=== PATIENT | male | born 1955 ===

== ENCOUNTER 2016-09-03 18:58 | Emergency (ER) | payer OTHER ==
[2016-09-03 19:05] VITALS: TEMP 99.1; BMI 27.4
[2016-09-03] MEDS ORDERED: Sodium Chloride 0.9% 1,000 ML IV STA (19:57)
[2016-09-03] MEDS ORDERED: Multivitamin (MVI) 10 ML, Thiamine 100 MG, Folic Acid 1 MG in Sodium Chloride 0.9% 1,00... IV ONE (19:59)
[2016-09-03 20:21] LABS: BASO # 0.07 K/mm3 (0.0-2.0); BASO % 0.6 % (0.0-3.0); EOS # 0.5 (0.0-0.7); EOS % 4.6 % (1.5-5.0); GRAN # 9.01 (1.4-6.5); GRAN % 79.1 % (50.0-68.0); HEMOGLOBIN 14.2 gm/dL (14.0-18.0); LYMPH # 1.4 (1.2-3.4); MEAN CELL VOLUME 86.9 fL (80.0-105.0); MEAN CORPUSCULAR HEMOGLOBIN 31.6 pg (25.0-35.0); MEAN CORPUSCULAR HGB CONC 36.4 g/dl (31.0-37.0); MONO # 0.4 (0.1-0.6); MONO % 3.7 % (1.0-6.0); PLATELET COUNT 200 10^3/uL (120.0-450.0); RBC 4.49 10^6/uL (3.5-6.1); RED CELL DISTRIBUTION WIDTH 13.4 % (11.5-14.5); WHITE BLOOD COUNT 11.4 10^3/ul (4.5-11.0)
[2016-09-03 20:33] LABS: ALB/GLOB RATIO 1.5 (1.1-1.8); ALBUMIN 5.1 g/dL (3.0-4.8); ALT/SGPT 33 U/L (7-56); AST/SGOT 43 U/L (15-59); BLOOD UREA NITROGEN 13 mg/dL (7-21); CALCIUM 9.1 mg/dL (8.4-10.5); GFR AFRICAN-AMERICAN > 60; GFR NON-AFRICAN AMERICAN > 60; LIPASE 140 U/L (23-300)
[2016-09-03 20:42] LABS: TROPONIN I < 0.01 ng/mL
[2016-09-03 21:06] VITALS: BP 141/74
[2016-09-03 21:16] LABS: URINE BILIRUBIN NEGATIVE (NEGATIVE); URINE BLOOD TRACE-INTACT (NEGATIVE); URINE GLUCOSE (UA) NEGATIVE (NEGATIVE); URINE LEUKOCYTE ESTERASE NEGATIVE Leu/uL (NEGATIVE); URINE NITRATE NEGATIVE (NEGATIVE); URINE PROTEIN TRACE mg/dL (<30 mg/dL); URINE UROBILINOGEN 0.2 E.U./dL (<1 E.U./dL)
[2016-09-03 21:21] LABS: URINE APPEARANCE CLEAR (CLEAR); URINE COLOR YELLOW (YELLOW)
[2016-09-03 21:31] LABS: URINE BACTERIA FEW (NEG)
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
[2016-09-03 22:46] VITALS: PULSE 80; RESP 16; O2SAT 99
--- NOTE | 2016-09-04 08:15 | RAD ---
PROCEDURE: CHEST RADIOGRAPH, 1 VIEW HISTORY: weakness COMPARISON: None available. FINDINGS: LUNGS: Poor inspiration with low lung volumes, crowded bronchovascular markings and mild bibasilar atelectasis. PLEURA: No pneumothorax or pleural fluid seen. CARDIOVASCULAR: Heart size is borderline/ mildly enlarged OSSEOUS STRUCTURES: No significant abnormalities. VISUALIZED UPPER ABDOMEN: Normal. OTHER FINDINGS: None. IMPRESSION: Poor inspiration with low lung volumes, crowded bronchovascular markings and mild bibasilar atelectasis.
--- NOTE | 2016-09-04 10:02 | CARD ---
APPROVED REPORT EKG Measurement Heart [id number] [id number] <Conclusion> Normal sinus rhythm Moderate voltage criteria for LVH, may be normal variant Leftward axis NSSTW changes Prolonged QTc
== END 2016-09-03 22:46 | disposition home or self-care (01) ==
LOC: ED 18:58
DX: F10.239 Alcohol dependence with withdrawal, unspecified (principal); Y90.0 Blood alcohol level of less than 20 mg/100 ml; E86.0 Dehydration; E88.89 Other specified metabolic disorders
CPT/HCPCS: 71010; 80053; 80320; 81001; 83690; 84484; 85025; 93005; 96361; 96365; 96372; 96375; 99284; J2060; J2405; J3411; J7040

== ENCOUNTER 2017-09-19 21:31 | Inpatient (IN) | payer SELFPAY ==
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
[2017-09-19 22:10] LABS: HEMOGLOBIN 15.3 g/dL (14.0-18.0); MEAN CORPUSCULAR HGB CONC 37.2 g/dl (31.0-37.0); MEAN PLATELET VOLUME 9.5 fl (7.0-11.0); RBC 4.78 10^6/uL (3.5-6.1); RED CELL DISTRIBUTION WIDTH 13.3 % (11.5-14.5); WHITE BLOOD COUNT 9.4 10^3/ul (4.5-11.0)
[2017-09-19 22:21] LABS: INR 0.96 (0.93-1.08); PARTIAL THROMBOPLASTIN TIME 25.9 Seconds (25.1-36.5); PROTHROMBIN TIME 10.9 SECONDS (9.4-12.5)
[2017-09-19 22:25] LABS: ALB/GLOB RATIO 1.3 (1.1-1.8); ALT/SGPT 40 U/L (7-56); AST/SGOT 36 U/L (17-59); BLOOD UREA NITROGEN 13 mg/dL (7-21); CALCIUM 8.7 mg/dL (8.4-10.5); GFR AFRICAN-AMERICAN > 60; GFR NON-AFRICAN AMERICAN > 60
[2017-09-19 22:36] LABS: TROPONIN I < 0.01 ng/mL
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
[2017-09-20] MEDS ORDERED: Multivitamin (MVI) 10 ML, Thiamine 100 MG, Folic Acid 1 MG in Sodium Chloride 0.9% 1,00... IV ONE (00:13)
[2017-09-20 00:24] LABS: HDL CHOLESTEROL 65 mg/dL (29-60); LIPASE 117 U/L (23-300)
[2017-09-20 00:35] LABS: LDL CHOLESTEROL 83 mg/dL (0-129)
[2017-09-20 02:20] VITALS: BMI 27.4
[2017-09-20 02:44] LABS: ARTERIAL BLOOD GAS HCO3 15.9 mmol/L (21-28); ARTERIAL BLOOD GAS HEMOGLOBIN 14.2 g/dL (11.7-17.4); ARTERIAL BLOOD GAS O2 CAPACITY 19.5 mL/dl (16-24); ARTERIAL BLOOD GAS O2 CONTENT 18.5 ML/dl (15-23); ARTERIAL BLOOD GAS O2 SAT 94.7 % (95-98); ARTERIAL BLOOD GAS PCO2 33 mm/Hg (35-45); ARTERIAL BLOOD GAS PH 7.29 (7.35-7.45); ARTERIAL BLOOD GAS TCO2 16.9 mmol.L (22-28)
[2017-09-20 04:27] LABS: BARBITURATES, UR NEGATIVE (NEGATIVE); BENZODIAZEPINES, UR NEGATIVE (NEGATIVE); OPIATES, UR NEGATIVE (NEGATIVE); PHENCYCLIDINE, UR NEGATIVE (NEGATIVE)
[2017-09-20 06:42] LABS: BASO # 0.05 K/mm3 (0.0-2.0); BASO % 0.5 % (0.0-3.0); EOS # 0.5 (0.0-0.7); EOS % 5.4 % (1.5-5.0); GRAN # 6.95 (1.4-6.5); GRAN % 72.3 % (50.0-68.0); HEMOGLOBIN 13.5 g/dL (14.0-18.0); LYMPH # 1.9 (1.2-3.4); LYMPH % 19.4 % (22.0-35.0); MEAN CORPUSCULAR HEMOGLOBIN 30.7 pg (25.0-35.0); MEAN CORPUSCULAR HGB CONC 35.2 g/dl (31.0-37.0); MONO # 0.2 (0.1-0.6); MONO % 2.4 % (1.0-6.0); RBC 4.4 10^6/uL (3.5-6.1); RED CELL DISTRIBUTION WIDTH 13.5 % (11.5-14.5); WHITE BLOOD COUNT 9.6 10^3/ul (4.5-11.0)
[2017-09-20 06:43] LABS: ALB/GLOB RATIO 1.4 (1.1-1.8); ALBUMIN 4.4 g/dL (3.0-4.8); ALT/SGPT 26 U/L (7-56); AST/SGOT 40 U/L (17-59); BLOOD UREA NITROGEN 15 mg/dL (7-21); CALCIUM 8.4 mg/dL (8.4-10.5); GFR AFRICAN-AMERICAN > 60; GFR NON-AFRICAN AMERICAN > 60
[2017-09-20 08:02] LABS: TROPONIN I < 0.01 ng/mL
--- NOTE | 2017-09-20 08:25 | CT ---
Date of service: 09/20/2017 PROCEDURE: CT Chest without contrast HISTORY: Chest pain radiating to back COMPARISON: None. TECHNIQUE: Contiguous axial images were obtained through the chest without intravenous contrast enhancement. Sagittal and coronal reconstructions were performed. Radiation dose (DLP): 394 mGy-cm. This CT exam was performed using one or more of the following dose reduction techniques: Automated exposure control, adjustment of the mA and/or kV according to patient size, and/or use of iterative reconstruction technique. FINDINGS: LUNGS: Clear lungs. Visualized airway clear. MEDIASTINUM: Unremarkable thoracic aorta. No aneurysm. Normal sized heart. Main pulmonary artery unremarkable. No vascular congestion. No lymphadenopathy. PLEURA: No pleural fluid. No pneumothorax. BONES: No fracture. No destructive lesion. UPPER ABDOMEN: Grossly unremarkable. OTHER FINDINGS: None. IMPRESSION: No acute findings
--- NOTE | 2017-09-20 09:12 | RAD ---
Date of service: 09/19/2017 HISTORY: chest pain COMPARISON: 09/03/2016 FINDINGS: LUNGS: No active pulmonary disease. PLEURA: No significant pleural effusion identified, no pneumothorax apparent. CARDIOVASCULAR: Normal. OSSEOUS STRUCTURES: No significant abnormalities. VISUALIZED UPPER ABDOMEN: Normal. OTHER FINDINGS: None. IMPRESSION: No active disease.
[2017-09-20] MEDS ORDERED: WATER IV SCH (11:00)
[2017-09-20] MEDS ORDERED: SODIUM BICARBONATE IV SCH (11:00)
[2017-09-20] MEDS ORDERED: DEXTROSE 5% IV SCH (11:00)
[2017-09-20] MEDS ORDERED: Sodium Bicarbonate 8.4% 150 MEQ in Dextrose 5% In Water 1,000 ML IV SCH (11:15)
[2017-09-20 11:33] LABS: ARTERIAL BLOOD GAS HCO3 15.5 mmol/L (21-28); ARTERIAL BLOOD GAS HEMOGLOBIN 12.6 g/dL (11.7-17.4); ARTERIAL BLOOD GAS O2 CAPACITY 17.5 mL/dl (16-24); ARTERIAL BLOOD GAS O2 CONTENT 17.1 ML/dl (15-23); ARTERIAL BLOOD GAS O2 SAT 97.7 % (95-98); ARTERIAL BLOOD GAS PCO2 28 mm/Hg (35-45); ARTERIAL BLOOD GAS PH 7.35 (7.35-7.45); ARTERIAL BLOOD GAS TCO2 16.4 mmol.L (22-28)
[2017-09-20 11:45] LABS: ALB/GLOB RATIO 1.4 (1.1-1.8); ALT/SGPT 25 U/L (7-56); AST/SGOT 29 U/L (17-59); BLOOD UREA NITROGEN 15 mg/dL (7-21); CALCIUM 8.3 mg/dL (8.4-10.5); GFR AFRICAN-AMERICAN > 60; GFR NON-AFRICAN AMERICAN > 60
--- NOTE | 2017-09-20 13:52 | CT ---
Date of service: 09/20/2017 PROCEDURE: CT Abdomen and Pelvis without intravenous contrast HISTORY: abdominal pain with constipation COMPARISON: 06/20/2017 CT TECHNIQUE: Without contrast. Contrast dose: Radiation dose: Total exam DLP = 638 mGy-cm. This CT exam was performed using one or more of the following dose reduction techniques: Automated exposure control, adjustment of the mA and/or kV according to patient size, and/or use of iterative reconstruction technique. FINDINGS: LOWER THORAX: Unremarkable. LIVER: Unremarkable. No gross lesion or ductal dilatation. GALLBLADDER AND BILE DUCTS: Unremarkable. PANCREAS: Unremarkable. No gross lesion or ductal dilatation. SPLEEN: Unremarkable. ADRENALS: Unremarkable. No mass. KIDNEYS AND URETERS: Unremarkable. No hydronephrosis. No solid mass. VASCULATURE: Unremarkable. No aortic aneurysm. BOWEL: Unremarkable. No obstruction. No gross mural thickening. APPENDIX: Unremarkable. Normal appendix. PERITONEUM: Unremarkable. No free fluid. No free air. LYMPH NODES: Unremarkable. No enlarged lymph nodes. BLADDER: Unremarkable. REPRODUCTIVE: Unremarkable. BONES: No acute fracture. OTHER FINDINGS: None. IMPRESSION: Unremarkable non contrast enhanced CT of the abdomen and pelvis.
[2017-09-20] MEDS: Enoxaparin 40 mg Syringe SC SCH (13:53)
--- NOTE | 2017-09-20 14:10 | US ---
Date of service: 09/20/2017 HISTORY: Abdominal pain COMPARISON: None. TECHNIQUE: Sonographic evaluation of the abdomen. FINDINGS: LIVER: Measures 18.8 cm. Diffusely increased echogenicity of the liver parenchyma. Consistent with fatty infiltration. Smooth contour. No mass. No biliary dilatation. GALLBLADDER: Cholelithiasis noted. No mural thickening. No pericholecystic fluid. Negative sonographic Rodriguez sign. COMMON BILE DUCT: Measures 6 mm. No stones. No dilatation. PANCREAS: Limited visualization. No gross abnormality. RIGHT KIDNEY: Measures 10.3cm. Normal echogenicity. No calculus, mass, or hydronephrosis. LEFT KIDNEY: Measures 10.6cm. Normal echogenicity. No calculus or hydronephrosis. Upper pole simple cortical cyst, 4.0 x 3.8 x 5.1 cm. SPLEEN: Normal in size and contour. No mass. AORTA: No aneurysmal dilatation. IVC: Unremarkable. OTHER FINDINGS: None. IMPRESSION: Mildly enlarged fatty liver. Cholelithiasis without evidence of cholecystitis. 5.1 cm simple left upper pole renal cortical cyst.
[2017-09-20 15:49] LABS: BLOOD UREA NITROGEN 17 mg/dL (7-21); CALCIUM 8.2 mg/dL (8.4-10.5); GFR AFRICAN-AMERICAN > 60; GFR NON-AFRICAN AMERICAN > 60
[2017-09-20 16:13] LABS: IRON 113 ug/dL (45-180)
[2017-09-20 16:22] LABS: % IRON SATURATION 51 % (20-55); TOTAL IRON BINDING CAPACITY 222 ug/dL (261-462)
[2017-09-20] MEDS: POLYETHYLENE GLYCOL 3350 17 GM/Dose PACKET PO SCH (17:38)
--- NOTE | 2017-09-20 18:57 | CARD ---
APPROVED REPORT Date of service: 09/20/2017 EKG Measurement Heart [id number] <Conclusion> Normal sinus rhythm Minimal voltage criteria for LVH, may be normal variant Borderline ECG
--- NOTE | 2017-09-20 19:02 | CARD ---
APPROVED REPORT Date of service: 09/19/2017 EKG Measurement Heart [id number] <Conclusion> Poor data quality, interpretation may be adversely affected Normal sinus rhythm Normal ECG
[2017-09-21 06:40] LABS: BASO # 0.03 K/mm3 (0.0-2.0); BASO % 0.4 % (0.0-3.0); EOS # 0.7 (0.0-0.7); EOS % 9.5 % (1.5-5.0); GRAN # 5.09 (1.4-6.5); GRAN % 66.5 % (50.0-68.0); HEMOGLOBIN 12.8 g/dL (14.0-18.0); LYMPH # 1.3 (1.2-3.4); LYMPH % 16.7 % (22.0-35.0); MEAN CELL VOLUME 85.9 fl (80.0-105.0); MEAN CORPUSCULAR HEMOGLOBIN 31.1 pg (25.0-35.0); MEAN CORPUSCULAR HGB CONC 36.2 g/dl (31.0-37.0); MEAN PLATELET VOLUME 9.7 fl (7.0-11.0); MONO # 0.5 (0.1-0.6); MONO % 6.9 % (1.0-6.0); RBC 4.12 10^6/uL (3.5-6.1); WHITE BLOOD COUNT 7.7 10^3/ul (4.5-11.0)
[2017-09-21 06:49] LABS: ALB/GLOB RATIO 1.4 (1.1-1.8); ALBUMIN 4.1 g/dL (3.0-4.8); ALT/SGPT 29 U/L (7-56); AST/SGOT 34 U/L (17-59); BLOOD UREA NITROGEN 16 mg/dL (7-21); CALCIUM 8.5 mg/dL (8.4-10.5); GFR AFRICAN-AMERICAN > 60; GFR NON-AFRICAN AMERICAN > 60
[2017-09-21] MEDS ORDERED: Sodium Chloride 0.9% 100 ML IV SCH (09:45)
[2017-09-21] MEDS: Enoxaparin 40 mg Syringe SC SCH (09:55)
[2017-09-21] MEDS: POLYETHYLENE GLYCOL 3350 17 GM/Dose PACKET PO SCH ×2 (09:56→17:17)
[2017-09-21] MEDS: Potassium & Sodium Phosphate PO SCH ×3 (09:56→17:17)
--- NOTE | 2017-09-21 12:53 | CT ---
Date of service: 09/21/2017 PROCEDURE: CT HEAD WITHOUT CONTRAST. HISTORY: new onset nausea vomiting COMPARISON: None available. TECHNIQUE: Axial computed tomography images were obtained through the head/brain without intravenous contrast. Radiation dose: Total exam DLP = 904 mGy-cm. This CT exam was performed using one or more of the following dose reduction techniques: Automated exposure control, adjustment of the mA and/or kV according to patient size, and/or use of iterative reconstruction technique. FINDINGS: HEMORRHAGE: No intracranial hemorrhage. BRAIN: No mass effect or edema. No atrophy or chronic microvascular ischemic changes. VENTRICLES: Unremarkable. No hydrocephalus. CALVARIUM: Unremarkable. PARANASAL SINUSES: Unremarkable as visualized. No significant inflammatory changes. MASTOID AIR CELLS: Unremarkable as visualized. No inflammatory changes. OTHER FINDINGS: None. IMPRESSION: No acute findings
--- NOTE | 2017-09-21 14:17 | CP.PCM.PN ---
<Rj Atkinson - Last Filed: 09/21/17 16:03> Subjective - Date & Time of Evaluation Date of Evaluation: 09/21/17 Time of Evaluation: 09:00 - Subjective Subjective: Medicine progress note for Dr. Louise Atkinson, PGY - 2, IM Patient seen at bedside. At 0400 this morning he experienced room spinning, dizziness, nausea, and vomiting. Patient reports a 15 year history of vertigo and states current symptoms are similar to prior episodes. He tends to get vertigo-like symptoms after drinking but has also experienced symptoms without any EtOH use. Currently denies any associated chest pain, dyspnea, lightheadedness, numbness, tingling, weakness, or focal deficits and any other new symptoms. He takes Meclizine for his vertigo. No other new concerns at this time. Objective - Vital Signs/Intake and Output Vital Signs (last 24 hours): Temp Pulse Resp BP Pulse Ox 97.5 F L 74 20 155/83 H 99 09/21/17 06:00 09/21/17 10:00 09/21/17 06:00 09/21/17 06:00 09/21/17 06:00 - Medications Medications: Current Medications Aspirin (Aspirin Chewable) 81 mg PO DAILY [facility] Last Admin: 09/21/17 09:55 Dose: 81 mg Atorvastatin Calcium (Lipitor) 40 mg PO DIN [facility] Last Admin: 09/20/17 17:38 Dose: 40 mg Chlordiazepoxide (Librium) 25 mg PO Q8 PRN; Protocol PRN Reason: Anxiety Enoxaparin Sodium (Lovenox) 40 mg SC DAILY [facility] PRN Reason: Protocol Last Admin: 09/21/17 09:55 Dose: 40 mg Famotidine (Pepcid) 40 mg PO HS [facility] Last Admin: 09/20/17 21:35 Dose: 40 mg Hydrochlorothiazide (Microzide) 12.5 mg PO DAILY [facility] Last Admin: 09/21/17 09:56 Dose: 12.5 mg Sodium Chloride (Sodium Chloride 0.9%) 100 mls @ 100 mls/hr IV .Q1H [facility] Last Admin: 09/21/17 09:58 Dose: 100 mls/hr Ondansetron HCl (Zofran Inj) 4 mg IVP Q6H PRN PRN Reason: Nausea/Vomiting Last Admin: 09/21/17 08:15 Dose: 4 mg Polyethylene Glycol (Miralax) 17 gm PO BID [facility] Last Admin: 09/21/17 09:56 Dose: Not Given Potassium Phos/Sodium Phos (Neutra-Phos) 2 pkt PO TID [facility] Last Admin: 09/21/17 09:56 Dose: 2 pkt Tamsulosin HCl (Flomax) 0.4 mg PO DAILY [facility] Last Admin: 09/21/17 09:55 Dose: 0.4 mg - Labs Labs: PT 10.9 SECONDS (9.4-12.5) 09/19/17 21:35 INR 0.96 (0.93-1.08) 09/19/17 21:35 APTT 25.9 Seconds (25.1-36.5) 09/19/17 21:35 - Constitutional Appears: Well (mild distress) - Head Exam Head Exam: ATRAUMATIC, NORMAL INSPECTION, NORMOCEPHALIC - Eye Exam Eye Exam: EOMI, Normal appearance, Nystagmus (Nystagmus on Tiffani-hallpike maneuver ), PERRL Pupil Exam: NORMAL ACCOMODATION, PERRL - ENT Exam ENT Exam: Mucous Membranes Moist, Normal Exam - Neck Exam Neck Exam: Full ROM, Normal Inspection. absent: Lymphadenopathy - Respiratory Exam Respiratory Exam: Clear to Ausculation Bilateral, NORMAL BREATHING PATTERN - Cardiovascular Exam Cardiovascular Exam: REGULAR RHYTHM, +S1, +S2. absent: Murmur - GI/Abdominal Exam GI & Abdominal Exam: Soft, Tenderness (minimal epigastric tenderness with palpation. No other abdominal tenderness noted), Normal Bowel Sounds - Extremities Exam Extremities Exam: Full ROM, Normal Capillary Refill, Normal Inspection. absent : Joint Swelling, Pedal Edema - Back Exam Back Exam: NORMAL INSPECTION - Neurological Exam Neurological Exam: Alert, Awake, CN II-XII Intact, Normal Gait, Oriented x3 Additional comments: 5/5 strength bilateral upper and lower extremities. Normal sensation in bilateral upper and lower extremities. No tremors or asterixis. - Psychiatric Exam Psychiatric exam: Anxious - Skin Skin Exam: Dry, Intact, Normal Color, Warm Assessment and Plan - Assessment and Plan (Free Text) Assessment: 62 YO ukrainian speaking male w/ PMH of EtOH abuse, and Benign prostatic hyperplasia, presented to [facility] ED on 09/19 with chief complaint of anxiety and chest pain; admitted for ACS rule out and EtOH withdrawal. Plan: Chest pain, ACS rule out versus pancreatitis versus cholecystitis CXR negative Trop negative x3 Reviewed ECG, normal sinus rhythm, minimal voltage criteria for LVH Reviewed chest CT, no acute findings Cont Hydrochlorothiazide Cardiology consulted - ACS ruled out at this point, suggested ECHO, pending Lipase normal on admission CT abdomen/pelvis- no acute findings Abdominal US- mildly enlarged liver with steatosis. Cholelithiasis without cholecystitis. 5.1 simple left upper pole renal cortical cyst EtOH withdrawal Patient past three CIWA are 1, 0, and 1 Ativan has been discontinued Yesterday had changed Librium dose to 10 q8; in light of new symptoms, unclear if patient is withdrawing or strictly having BPPV, will change to origincal dose of 25 q8 Anion gap metabolic acidosis improved, bicarb drip stopped Phosphorus low on labs today, patient started on Neutro-Phos Continue to monitor BMP CIWA, Fall, Aspiration, and Seizure precautions Benign Paroxysmal Positional Vertigo versus N/V associated with EtOH withdrawal Positive Tiffani-Hallpike maneuver on exam Patient given Meclizine and Zofran for acute dizziness and nausea Ordered head CT, no acute intracranial findings Will order orthostatic vitals Will continue to monitor patients symptoms Anemia Reviewed iron study, low Hgb, Hct, TIBC. Likely anemia of chronic Disease Patient was on Iron as an outpatient, no need for it here, patient should follow up as an outpatient Benign Prostatic Hyperplasia Continue Flomaxe 0.4 mg QD GI/DVT Prophylaxis: Cont. Protonix and Lovenox <Fani Gil - Last Filed: 09/22/17 17:16> Objective - Vital Signs/Intake and Output Vital Signs (last 24 hours): Temp Pulse Resp BP Pulse Ox 97.9 F 74 18 122/67 94 L 09/22/17 08:06 09/22/17 10:00 09/22/17 08:06 09/22/17 08:06 09/22/17 08:06 Intake and Output: 09/22/17 09/22/17 06:59 18:59 Output Total 400 Balance -400 - Labs Labs: 09/22/17 05:30 09/22/17 05:30 PT 10.9 SECONDS (9.4-12.5) 09/19/17 21:35 INR 0.96 (0.93-1.08) 09/19/17 21:35 APTT 25.9 Seconds (25.1-36.5) 09/19/17 21:35 Attending/Attestation - Attestation I have personally seen and examined this patient.: Yes I have fully participated in the care of the patient.: Yes I have reviewed all pertinent clinical information, including history, physical exam and plan: Yes Notes (Text): 09/22/17 17:13 Medical record note made by the resident after discussion with my direction and input after the patient was personally seen and examined by me. I have reviewed the chart and agree that the record accurately reflects by personal performance of the history, physical exam, data review, and medical decision-making, in the course for the patient. I have also personally directed the plan of care. 62 Yrs old male male with PMH of Alcohol abuse, and Benign prostatic hyperplasia,was admitted with alcohol intoxication and h/o chest pain. EKG was negative for ischemic changes, serial troponins are normal.As per patient he did not has any chest pain. There is no sign of alcohol withdrawal. Patient is having nausea or vomiting.He is also having vertigo.CT scan of head is negative.There is no focal deficit. Management plan was discussed in detail with patient. Education was provided.
--- NOTE | 2017-09-21 14:27 | CON ---
DATE: 09/21/2017 CARDIOLOGY CONSULT REASON FOR CONSULTATION: Chest pain and anxiety. HISTORY OF PRESENT ILLNESS: The patient is a 62-year-old male who has a history of EtOH abuse, benign prostatic hypertrophy, presented because of chest pain as well as abdominal pain, nausea and vomiting. The patient denies any history of heart attack in the past. At the time of my evaluation to the patient this morning, the patient denies having any chest pain, but he is experiencing the nausea, the epigastric discomfort and the vomiting. SOCIAL HISTORY: The patient is an EtOH abuser. MEDICATIONS: Aspirin 81 mg once a day, Flomax 0.4 mg once a day, Librium 25 mg every 8 hours, Lipitor 40 mg once a day, Lovenox 40 mg subcutaneously once a day, hydrochlorothiazide 12.5 mg daily, Neutra-Phos 2 packets t.i.d., Pepcid 20 mg p.o. at bedtime, normal saline at 100 mL an hour. PHYSICAL EXAMINATION: GENERAL: The patient is a middle-aged male, who does not appear to be in any acute distress. VITAL SIGNS: Blood pressure 155/83, heart rate 89, temperature 97.5, respirations 20. HEENT: Normocephalic. CHEST: Clear. HEART: S1 and S2 regular. ABDOMEN: Mild epigastric tenderness. EXTREMITIES: No edema. LABORATORY DATA: Hemoglobin and hematocrit 12.8 and 35.4. White count and platelet count are within normal limits. SMA-7 today is within normal limit except for glucose of 123 and carbon dioxide of 97. Three sets of troponins are negative. Triglycerides elevated at 365. TSH level is within normal limit. EKG revealed normal sinus rhythm at rate of 82. Abdomen and pelvis CT scan without p.o. or IV contrast unremarkable, noncontrast enhanced CT study of the abdomen and pelvis. Chest CT scan without contrast: No acute findings. Toxicology screen: Alcohol level was 336 on admission. ASSESSMENT: 1. Chest pain. Myocardial infarction was ruled out. 2. Alcohol intoxication. 3. Abdominal pain with nausea and vomiting. 4. Hypertriglyceridemia. RECOMMENDATIONS: Continue IV fluid infusion. Continue current Librium, Lipitor, aspirin and hydrochlorothiazide. Obtain an echocardiogram. Bubba Villegas MD [facility] # [id number]
--- NOTE | 2017-09-21 17:06 | CARD ---
APPROVED REPORT Date of service: 09/21/2017 EXAM: Two-dimensional and M-mode echocardiogram with Doppler and color Doppler. INDICATION Chest Pain 2D DIMENSIONS IVSd1.2 (0.7-1.1cm)LVDd4.1 (3.9-5.9cm) PWd1.2 (0.7-1.1cm)LVDs2.5 (2.5-4.0cm) FS (%) 37.8 %LVEF (%)68.4 (>50%) M-Mode DIMENSIONS Aortic Root2.90 (2.2-3.7cm)Aortic Cusp Exc.1.60 (1.5-2.0cm) Aortic Valve AoV Peak Mprpqphd038.0cm/Deedee Peak GR.7mmHg Mitral Valve MV E Bzisbvir81.5cm/sMV A Myadyhrz624.0cm/sE/A ratio0.7 TDI E/Lateral E'0.0E/Medial E'0.0 Tricuspid Valve TR Peak [id number]/sRAP [id number] Peak Gr.17mmHg [id number] LEFT VENTRICLE The left ventricle is normal size. There is normal left ventricular wall thickness. The left ventricular function is normal. The left ventricular ejection fraction is within the normal range. There is normal LV segmental wall motion. Transmitral Doppler flow pattern is Grade I-abnormal relaxation pattern. RIGHT VENTRICLE The right ventricle is normal size. There is normal right ventricular wall thickness. The right ventricular systolic function is normal. ATRIA The left atrium size is normal. The right atrium size is normal. AORTIC VALVE The aortic valve is normal in structure. No aortic regurgitation is present. There is no aortic valvular stenosis. MITRAL VALVE The mitral valve is normal in structure. There is no mitral valve regurgitation noted. There is no mitral valve stenosis. TRICUSPID VALVE The tricuspid valve is normal in structure. There is trace to mild tricuspid regurgitation. PULMONIC VALVE The pulmonary valve is normal in structure. There is no pulmonic valvular regurgitation. GREAT VESSELS The aortic root is normal in size. The IVC is normal in size and collapses >50% with inspiration. PERICARDIAL EFFUSION There is a trace loculated anterior pericardial effusion. <Conclusion> The left ventricle is normal size. There is normal left ventricular wall thickness. The left ventricular function is normal. The left ventricular ejection fraction is within the normal range. There is normal LV segmental wall motion. Transmitral Doppler flow pattern is Grade I-abnormal relaxation pattern.
[2017-09-22 06:34] LABS: BASO # 0.02 K/mm3 (0.0-2.0); BASO % 0.3 % (0.0-3.0); EOS # 1.3 (0.0-0.7); EOS % 19.5 % (1.5-5.0); GRAN # 3.07 (1.4-6.5); GRAN % 47.9 % (50.0-68.0); LYMPH # 1.7 (1.2-3.4); LYMPH % 26.2 % (22.0-35.0); MEAN CELL VOLUME 88.1 fl (80.0-105.0); MEAN CORPUSCULAR HEMOGLOBIN 30.5 pg (25.0-35.0); MEAN CORPUSCULAR HGB CONC 34.6 g/dl (31.0-37.0); MEAN PLATELET VOLUME 9.7 fl (7.0-11.0); MONO # 0.4 (0.1-0.6); MONO % 6.1 % (1.0-6.0); RBC 3.94 10^6/uL (3.5-6.1); RED CELL DISTRIBUTION WIDTH 13.1 % (11.5-14.5); WHITE BLOOD COUNT 6.4 10^3/ul (4.5-11.0)
[2017-09-22 07:34] LABS: ALB/GLOB RATIO 1.2 (1.1-1.8); ALBUMIN 3.5 g/dL (3.0-4.8); ALT/SGPT 29 U/L (7-56); AST/SGOT 72 U/L (17-59); BLOOD UREA NITROGEN 8 mg/dL (7-21); CALCIUM 8.1 mg/dL (8.4-10.5); GFR AFRICAN-AMERICAN > 60; GFR NON-AFRICAN AMERICAN > 60
[2017-09-22 08:06] VITALS: BP 122/67; RESP 18; TEMP 97.9; O2SAT 94
[2017-09-22] MEDS ORDERED: Potassium Chloride 20 mEq ER Tab PO STA (09:43)
[2017-09-22] MEDS: Enoxaparin 40 mg Syringe SC SCH (11:06)
[2017-09-22] MEDS: Potassium & Sodium Phosphate PO SCH (11:06)
[2017-09-22] MEDS: POLYETHYLENE GLYCOL 3350 17 GM/Dose PACKET PO SCH (11:07)
[2017-09-22 13:32] VITALS: PULSE 74
--- NOTE | 2017-09-22 13:41 | CP.PCM.DIS ---
<Eric Álvarez - Last Filed: 09/22/17 16:04> Provider - Provider Date of Admission: 09/21/17 11:52 Attending physician: Fani Gil MD Primary care physician: None Consults: Cardio - [place] Time Spent in preparation of Discharge (in minutes): 45 Hospital Course - Lab Results Lab Results: Most Recent Lab Values WBC 6.4 10^3/ul (4.5-11.0) 09/22/17 05:30 RBC 3.94 10^6/uL (3.5-6.1) 09/22/17 05:30 Hgb 12.0 g/dL (14.0-18.0) L 09/22/17 05:30 Hct 34.7 % (42.0-52.0) L 09/22/17 05:30 MCV 88.1 fl (80.0-105.0) 09/22/17 05:30 MCH 30.5 pg (25.0-35.0) 09/22/17 05:30 MCHC 34.6 g/dl (31.0-37.0) 09/22/17 05:30 RDW 13.1 % (11.5-14.5) 09/22/17 05:30 Plt Count 130 10^3/uL (120.0-450.0) 09/22/17 05:30 MPV 9.7 fl (7.0-11.0) 09/22/17 05:30 Gran % 47.9 % (50.0-68.0) L 09/22/17 05:30 Lymph % (Auto) 26.2 % (22.0-35.0) 09/22/17 05:30 [place] % (Auto) 6.1 % (1.0-6.0) H 09/22/17 05:30 Eos % (Auto) 19.5 % (1.5-5.0) H 09/22/17 05:30 Baso % (Auto) 0.3 % (0.0-3.0) 09/22/17 05:30 Gran # 3.07 (1.4-6.5) 09/22/17 05:30 Lymph # (Auto) 1.7 (1.2-3.4) 09/22/17 05:30 [place] # (Auto) 0.4 (0.1-0.6) 09/22/17 05:30 Eos # (Auto) 1.3 (0.0-0.7) H 09/22/17 05:30 Baso # (Auto) 0.02 K/mm3 (0.0-2.0) 09/22/17 05:30 PT 10.9 SECONDS (9.4-12.5) 09/19/17 21:35 INR 0.96 (0.93-1.08) 09/19/17 21:35 APTT 25.9 Seconds (25.1-36.5) 09/19/17 21:35 pCO2 28 mm/Hg (35-45) L 09/20/17 11:15 pO2 94.0 mm/Hg (80-100) 09/20/17 11:15 HCO3 15.5 mmol/L (21-28) L 09/20/17 11:15 ABG pH 7.35 (7.35-7.45) 09/20/17 11:15 ABG Total CO2 16.4 mmol.L (22-28) L 09/20/17 11:15 ABG O2 Saturation 97.7 % (95-98) 09/20/17 11:15 ABG O2 Content 17.1 ML/dl (15-23) 09/20/17 11:15 ABG Base Excess -8.7 mmol/L (-2.0-3.0) L 09/20/17 11:15 ABG Hemoglobin 12.6 g/dL (11.7-17.4) 09/20/17 11:15 ABG Carboxyhemoglobin 1.1 % (0.5-1.5) 09/20/17 11:15 POC ABG HHb (Measured) 2.3 % (0-5) 09/20/17 11:15 ABG Methemoglobin 0.9 % (0.0-3.0) 09/20/17 11:15 ABG O2 Capacity 17.5 mL/dl (16-24) 09/20/17 11:15 Hgb O2 Saturation 95.7 % (95.0-98.0) 09/20/17 11:15 FiO2 21.0 % 09/20/17 11:15 Sodium 138 mmol/L (132-148) 09/22/17 05:30 Potassium 3.2 mmol/L (3.6-5.0) L 09/22/17 05:30 Chloride 102 mmol/L (98-107) 09/22/17 05:30 Carbon Dioxide 27 mmol/L (21-33) 09/22/17 05:30 Anion Gap 12 (10-20) 09/22/17 05:30 BUN 8 mg/dL (7-21) 09/22/17 05:30 Creatinine 0.8 mg/dl (0.8-1.5) 09/22/17 05:30 Est GFR ( Amer) > 60 09/22/17 05:30 Est GFR (Non-Af Amer) > 60 09/22/17 05:30 Random Glucose 98 mg/dL (70-110) 09/22/17 05:30 Hemoglobin A1c 5.4 % (4.2-6.5) 09/19/17 21:35 Serum Osmolality 305 mosm/kg (272-300) H 09/20/17 10:30 Calcium 8.1 mg/dL (8.4-10.5) L 09/22/17 05:30 Phosphorus 2.8 mg/dL (2.5-4.5) 09/22/17 05:30 Magnesium 1.9 mg/dL (1.7-2.2) 09/22/17 05:30 Iron 113 ug/dL (45-180) 09/20/17 15:15 TIBC 222 ug/dL (261-462) L 09/20/17 15:15 % Saturation 51 % (20-55) 09/20/17 15:15 Ferritin 93.0 ng/mL 09/20/17 15:15 Total Bilirubin 0.9 mg/dL (0.2-1.3) 09/22/17 05:30 AST 72 U/L (17-59) H D 09/22/17 05:30 ALT 29 U/L (7-56) 09/22/17 05:30 Alkaline Phosphatase 62 U/L (38-126) 09/22/17 05:30 Lactate Dehydrogenase 595 U/L (333-699) 09/19/17 21:35 Total Creatine Kinase 219 U/L (35-230) 09/19/17 21:35 Troponin I < 0.01 ng/mL 09/20/17 06:30 Total Protein 6.4 g/dL (5.8-8.3) 09/22/17 05:30 Albumin 3.5 g/dL (3.0-4.8) 09/22/17 05:30 Globulin 2.9 gm/dL 09/22/17 05:30 Albumin/Globulin Ratio 1.2 (1.1-1.8) 09/22/17 05:30 Triglycerides 365 mg/dL (35-160) H 09/19/17 21:35 Cholesterol 200 mg/dL (130-200) 09/19/17 21:35 LDL Cholesterol Direct 83 mg/dL (0-129) 09/19/17 21:35 HDL Cholesterol 65 mg/dL (29-60) H 09/19/17 21:35 Lipase 117 U/L (23-300) 09/19/17 21:35 TSH 3rd Generation 1.67 mIU/mL (0.46-4.68) 09/19/17 21:35 Urine Opiates Screen Negative (NEGATIVE) 09/19/17 03:40 Urine Methadone Screen Negative (NEGATIVE) 09/19/17 03:40 Ur Barbiturates Screen Negative (NEGATIVE) 09/19/17 03:40 Ur Phencyclidine Scrn Negative (NEGATIVE) 09/19/17 03:40 Ur Amphetamines Screen Negative (NEGATIVE) 09/19/17 03:40 U Benzodiazepines Scrn Negative (NEGATIVE) 09/19/17 03:40 U Oth Cocaine Metabols Negative (NEGATIVE) 09/19/17 03:40 U Cannabinoids Screen Negative (NEGATIVE) 09/19/17 03:40 Alcohol, Quantitative 336 mg/dL (0-10) H* 09/19/17 21:35 - Hospital Course Hospital Course: Eric Álvarez DO PGY-1, Junior Mechanical Engineer Medicine Discharge Summary This is a 62 y o male w/ PMH of EtOH abuse, Gout, Benign prostatic hyperplasia who presented [place] [facility] [place] with chief complaint of anxiety and chest pain onset 4 hours prior to arrival. Pt reported that he had his last drink at 10AM on 09/19 after family told him to stop, has been drinking 6 packs daily x 4 days. Reported onset of anxiety when he stopped and complained of tremors, and palpitations. Stated that this is common for him when he stops drinking EtOH. Denied any history of seizure or hallucination when he stops drinking. He had complaints of associated abdominal pains which he stated radiated into the mid epigastric region and into his chest. Denied any L sided arm pain, left sided neck pain, and jaw claudication. No change in presentation of abd pain w/ movement. Also had associated complaints of numbness/tingling in legs. Pt was acidotic on labs on admission and was given 3 amps of bicarb with correction after. Pt was placed on CIWA protocol for hx chronic EtOH abuse and treated with librium and ativan. Pt was worked up for chest pain, troponins were negative x3, echo demonstrated normal ejection fraction and no septal wall motion abnormalities. Pt was placed on aspirin and statin for therapy, blood pressure was stable during admission. CXR, chest CT and CT abd/pelvis were negative for acute findings. Abd U/s demonstrated mildly enlarged liver with steatosis, cholelithiasis without cholecystitis, and 5.l cm simple L upper pole renal cortical cyst. Pt had episode of benign paroxysmal positional vertigo during admission with associated nausea/vomiting, was given zofran/meclizine for symptoms, CT head demonstrated no acute changes. Pt was discharged to home in stable condition on 09/22/17 with instructions to follow-up with Dr. Paul in [facility] within 1 week of discharge (left voicemail with service over weekend to make appt for patient). Pt was instructed on alcohol cessation. Pt was sent home on aspirin, lipitor, MVT, folate, thiamine, allergy eye drops, and zofran and instructed to take these medications as prescribed. Pt was also instructed to resume home medications on discharge. All questions and concerns were addressed with pt and he was agreeable to management. Discharge Exam - Head Exam Head Exam: ATRAUMATIC, NORMAL INSPECTION, NORMOCEPHALIC - Eye Exam Eye Exam: EOMI, Normal appearance, PERRL - ENT Exam ENT Exam: Mucous Membranes Moist, Normal Oropharynx - Respiratory Exam Respiratory Exam: Clear to PA & Lateral, NORMAL BREATHING PATTERN, UNREMARKABLE - Cardiovascular Exam Cardiovascular Exam: REGULAR RHYTHM, +S1, +S2 - GI/Abdominal Exam GI & Abdominal Exam: Normal Bowel Sounds, Soft, Unremarkable - Extremities Exam Extremities exam: full ROM, normal capillary refill, normal inspection, pedal pulses present - Back Exam Back exam: FULL ROM, NORMAL INSPECTION - Neurological Exam Neurological exam: Alert, CN II-XII Intact, Normal Gait, Oriented x3, Reflexes Normal - Psychiatric Exam Psychiatric exam: Normal Affect, Normal Mood - Skin Skin Exam: Dry, Intact, Normal Color, Warm Discharge Plan - Discharge Medications Prescriptions: Aspirin [Aspirin Chewable] 81 mg PO DAILY #14 chew Atorvastatin [Lipitor] 40 mg PO DIN #14 tab Folic Acid 1 mg PO DAILY #14 tab Ketotifen Fumarate [Zaditor] 5 ml OP BID 7 Days #1 bottle Multivitamin [Multi-Vitamin Daily] 1 each PO DAILY #14 tablet Ondansetron [Zofran] 4 mg PO Q8H PRN #6 tab PRN Reason: Nausea/Vomiting Thiamine [Vitamin B1 Tab] 50 mg PO DAILY #14 tab - Follow Up Plan Condition: STABLE Disposition: HOME/ ROUTINE Instructions: Vertigo (a Type of Dizziness) (DC), Alcohol Withdrawal, Alcohol Abuse and Alcoholism (DC), Chest Pain (DC), Chest Pain (GEN) Additional Instructions: Please follow up with Dr. Paul ([facility]) as your primary care provider within 1 week after discharge for appointment. Please take new medications as prescribed: Thiamine, Folate, Multivitamin, Zofran, Eye Drops, Aspirin, and Atorvastatin. Please resume your home medications as prescribed. Please avoid alcohol use. Should your symptoms worsen or recur, please call your primary care physician or report to your nearest emergency department. Referrals: Susanne Paul MD [Staff Provider] - <Fani Gil - Last Filed: 09/22/17 17:19> Provider - Provider Date of Admission: 09/21/17 11:52 Attending physician: Fani Gil MD Hospital Course - Lab Results Lab Results: Most Recent Lab Values WBC 6.4 10^3/ul (4.5-11.0) 09/22/17 05:30 RBC 3.94 10^6/uL (3.5-6.1) 09/22/17 05:30 Hgb 12.0 g/dL (14.0-18.0) L 09/22/17 05:30 Hct 34.7 % (42.0-52.0) L 09/22/17 05:30 MCV 88.1 fl (80.0-105.0) 09/22/17 05:30 MCH 30.5 pg (25.0-35.0) 09/22/17 05:30 MCHC 34.6 g/dl (31.0-37.0) 09/22/17 05:30 RDW 13.1 % (11.5-14.5) 09/22/17 05:30 Plt Count 130 10^3/uL (120.0-450.0) 09/22/17 05:30 MPV 9.7 fl (7.0-11.0) 09/22/17 05:30 Gran % 47.9 % (50.0-68.0) L 09/22/17 05:30 Lymph % (Auto) 26.2 % (22.0-35.0) 09/22/17 05:30 [place] % (Auto) 6.1 % (1.0-6.0) H 09/22/17 05:30 Eos % (Auto) 19.5 % (1.5-5.0) H 09/22/17 05:30 Baso % (Auto) 0.3 % (0.0-3.0) 09/22/17 05:30 Gran # 3.07 (1.4-6.5) 09/22/17 05:30 Lymph # (Auto) 1.7 (1.2-3.4) 09/22/17 05:30 [place] # (Auto) 0.4 (0.1-0.6) 09/22/17 05:30 Eos # (Auto) 1.3 (0.0-0.7) H 09/22/17 05:30 Baso # (Auto) 0.02 K/mm3 (0.0-2.0) 09/22/17 05:30 PT 10.9 SECONDS (9.4-12.5) 09/19/17 21:35 INR 0.96 (0.93-1.08) 09/19/17 21:35 APTT 25.9 Seconds (25.1-36.5) 09/19/17 21:35 pCO2 28 mm/Hg (35-45) L 09/20/17 11:15 pO2 94.0 mm/Hg (80-100) 09/20/17 11:15 HCO3 15.5 mmol/L (21-28) L 09/20/17 11:15 ABG pH 7.35 (7.35-7.45) 09/20/17 11:15 ABG Total CO2 16.4 mmol.L (22-28) L 09/20/17 11:15 ABG O2 Saturation 97.7 % (95-98) 09/20/17 11:15 ABG O2 Content 17.1 ML/dl (15-23) 09/20/17 11:15 ABG Base Excess -8.7 mmol/L (-2.0-3.0) L 09/20/17 11:15 ABG Hemoglobin 12.6 g/dL (11.7-17.4) 09/20/17 11:15 ABG Carboxyhemoglobin 1.1 % (0.5-1.5) 09/20/17 11:15 POC ABG HHb (Measured) 2.3 % (0-5) 09/20/17 11:15 ABG Methemoglobin 0.9 % (0.0-3.0) 09/20/17 11:15 ABG O2 Capacity 17.5 mL/dl (16-24) 09/20/17 11:15 Hgb O2 Saturation 95.7 % (95.0-98.0) 09/20/17 11:15 FiO2 21.0 % 09/20/17 11:15 Sodium 138 mmol/L (132-148) 09/22/17 05:30 Potassium 3.2 mmol/L (3.6-5.0) L 09/22/17 05:30 Chloride 102 mmol/L (98-107) 09/22/17 05:30 Carbon Dioxide 27 mmol/L (21-33) 09/22/17 05:30 Anion Gap 12 (10-20) 09/22/17 05:30 BUN 8 mg/dL (7-21) 09/22/17 05:30 Creatinine 0.8 mg/dl (0.8-1.5) 09/22/17 05:30 Est GFR ( Amer) > 60 09/22/17 05:30 Est GFR (Non-Af Amer) > 60 09/22/17 05:30 Random Glucose 98 mg/dL (70-110) 09/22/17 05:30 Hemoglobin A1c 5.4 % (4.2-6.5) 09/19/17 21:35 Serum Osmolality 305 mosm/kg (272-300) H 09/20/17 10:30 Calcium 8.1 mg/dL (8.4-10.5) L 09/22/17 05:30 Phosphorus 2.8 mg/dL (2.5-4.5) 09/22/17 05:30 Magnesium 1.9 mg/dL (1.7-2.2) 09/22/17 05:30 Iron 113 ug/dL (45-180) 09/20/17 15:15 TIBC 222 ug/dL (261-462) L 09/20/17 15:15 % Saturation 51 % (20-55) 09/20/17 15:15 Ferritin 93.0 ng/mL 09/20/17 15:15 Total Bilirubin 0.9 mg/dL (0.2-1.3) 09/22/17 05:30 AST 72 U/L (17-59) H D 09/22/17 05:30 ALT 29 U/L (7-56) 09/22/17 05:30 Alkaline Phosphatase 62 U/L (38-126) 09/22/17 05:30 Lactate Dehydrogenase 595 U/L (333-699) 09/19/17 21:35 Total Creatine Kinase 219 U/L (35-230) 09/19/17 21:35 Troponin I < 0.01 ng/mL 09/20/17 06:30 Total Protein 6.4 g/dL (5.8-8.3) 09/22/17 05:30 Albumin 3.5 g/dL (3.0-4.8) 09/22/17 05:30 Globulin 2.9 gm/dL 09/22/17 05:30 Albumin/Globulin Ratio 1.2 (1.1-1.8) 09/22/17 05:30 Triglycerides 365 mg/dL (35-160) H 09/19/17 21:35 Cholesterol 200 mg/dL (130-200) 09/19/17 21:35 LDL Cholesterol Direct 83 mg/dL (0-129) 09/19/17 21:35 HDL Cholesterol 65 mg/dL (29-60) H 09/19/17 21:35 Lipase 117 U/L (23-300) 09/19/17 21:35 TSH 3rd Generation 1.67 mIU/mL (0.46-4.68) 09/19/17 21:35 Urine Opiates Screen Negative (NEGATIVE) 09/19/17 03:40 Urine Methadone Screen Negative (NEGATIVE) 09/19/17 03:40 Ur Barbiturates Screen Negative (NEGATIVE) 09/19/17 03:40 Ur Phencyclidine Scrn Negative (NEGATIVE) 09/19/17 03:40 Ur Amphetamines Screen Negative (NEGATIVE) 09/19/17 03:40 U Benzodiazepines Scrn Negative (NEGATIVE) 09/19/17 03:40 U Oth Cocaine Metabols Negative (NEGATIVE) 09/19/17 03:40 U Cannabinoids Screen Negative (NEGATIVE) 09/19/17 03:40 Alcohol, Quantitative 336 mg/dL (0-10) H* 09/19/17 21:35 Attending/Attestation - Attestation I have personally seen and examined this patient.: Yes I have fully participated in the care of the patient.: Yes I have reviewed all pertinent clinical information, including history, physical exam and plan: Yes Notes (Text): 09/22/17 17:17 Medical record note made by the resident after discussion with my direction and input after the patient was personally seen and examined by me. I have reviewed the chart and agree that the record accurately reflects by personal performance of the history, physical exam, data review, and medical decision-making, in the course for the patient. I have also personally directed the plan of care. 62 Yrs old male male with PMH of Alcohol abuse, and Benign prostatic hyperplasia,was admitted with alcohol intoxication and h/o chest pain. EKG was negative for ischemic changes, serial troponins are normal.As per patient he did not has any chest pain. There is no sign of alcohol withdrawal. Vertigo has improved.Nausea and vomiting has resolved.CT scan of head is negative.There is no focal deficit.Patient is tolerating food.He is ambulatory. He will be discharged home and will follow up with [facility]. Issue of ongoing alcohol abuse was discussed in detail with patient. Management plan was discussed in detail with patient. Education was provided.
--- NOTE | 2017-09-22 16:48 | PN ---
DATE: 09/22/2017 SUBJECTIVE: The patient's abdominal pain and nausea have improved. He denies any chest pain. PHYSICAL EXAMINATION: VITAL SIGNS: Blood pressure 128/67, heart rate 70, temperature 97.9, respirations 18. HEENT: Normocephalic. CHEST: Clear. HEART: S1 and S2, regular. EXTREMITIES: No edema. LABORATORY DATA: Today's potassium is 3.2. Today's SMA-7 is within normal limit. Today's hemoglobin and hematocrit 12 and 34.7, white count and platelet count are within normal limit. Head CT scan without contrast performed yesterday, no acute findings. ASSESSMENT: 1. Status post alcohol intoxication. 2. Diastolic dysfunction by echocardiographic study. 3. Chest pain, myocardial infarction ruled out. 4. Hypertriglyceridemia. RECOMMENDATIONS: Continue current lithium, aspirin, Lipitor, subcutaneous Lovenox, hydrochlorothiazide, Neutra-Phos, and IV normal saline hydration. Bubba Villegas MD
== END 2017-09-22 13:34 | disposition home or self-care (01) | DRG 750 ==
LOC: ED 21:31 → ERH 23:11 → 3RNO 09-20 00:58 → OBSVTOIN 09-21 11:52
PROVIDERS: ADMIT Internal Medicine; ATTEND Internal Medicine
DX: F10.129 Alcohol abuse with intoxication, unspecified (principal); E87.2 Acidosis; R07.89 Other chest pain; H81.10 Benign paroxysmal vertigo, unspecified ear; N40.1 Benign prostatic hyperplasia with lower urinary tract symptoms; R39.11 Hesitancy of micturition; M10.9 Gout, unspecified; E78.1 Pure hyperglyceridemia; F41.9 Anxiety disorder, unspecified; K80.20 Calculus of gallbladder without cholecystitis without obstruction; D63.8 Anemia in other chronic diseases classified elsewhere; Y90.8 Blood alcohol level of 240 mg/100 ml or more

== ENCOUNTER 2018-01-20 11:42 | Inpatient (IN) | payer MEDICAID, SELFPAY ==
[2018-01-20 11:48] VITALS: BMI 28.8
[2018-01-20] MEDS ORDERED: Sodium Chloride 0.9% 1,000 ML IV STA (12:18)
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
[2018-01-20 12:41] LABS: BASO # 0.02 K/mm3 (0.0-2.0); BASO % 0.2 % (0.0-3.0); EOS # 0.1 (0.0-0.7); EOS % 1.1 % (1.5-5.0); GRAN # 8.78 (1.4-6.5); GRAN % 86.5 % (50.0-68.0); HEMOGLOBIN 15.4 g/dL (14.0-18.0); LYMPH # 0.9 (1.2-3.4); LYMPH % 8.6 % (22.0-35.0); MEAN CELL VOLUME 88.9 fl (80.0-105.0); MEAN CORPUSCULAR HEMOGLOBIN 31.6 pg (25.0-35.0); MEAN CORPUSCULAR HGB CONC 35.6 g/dl (31.0-37.0); MEAN PLATELET VOLUME 9.9 fl (7.0-11.0); MONO # 0.4 (0.1-0.6); MONO % 3.6 % (1.0-6.0); RBC 4.87 10^6/uL (3.5-6.1); RED CELL DISTRIBUTION WIDTH 13.5 % (11.5-14.5); VENOUS BLOOD GAS BASE EXCESS -2.2 mmol/L (0.0-2.0); VENOUS BLOOD GAS PO2 72 mm/Hg (30-55); VENOUS BLOOD PH 7.36 (7.32-7.43); WHITE BLOOD COUNT 10.2 10^3/uL (4.5-11.0)
--- NOTE | 2018-01-20 12:50 | RAD ---
HISTORY: abdominal pain COMPARISON: Chest x-ray performed 09/19/17 TECHNIQUE: Chest, one view. FINDINGS: Examination limited by habitus and hypoinflation. LUNGS: Mild subsegmental atelectasis. No focal consolidation. Please note that chest x-ray has limited sensitivity for the detection of pulmonary masses. PLEURA: No significant pleural effusion identified. No definite pneumothorax . CARDIOVASCULAR: Heart size appears within normal limits. No significant atherosclerotic calcification present. OSSEOUS STRUCTURES: Degenerative changes. VISUALIZED UPPER ABDOMEN: Unremarkable. OTHER FINDINGS: None. IMPRESSION: Mild subsegmental atelectasis. Hypoinflation.
[2018-01-20 12:51] LABS: PARTIAL THROMBOPLASTIN TIME 24.5 Seconds (25.1-36.5); PROTHROMBIN TIME 11.5 SECONDS (9.4-12.5)
[2018-01-20 12:53] LABS: ALB/GLOB RATIO 1.3 (1.1-1.8); ALBUMIN 4.4 g/dL (3.0-4.8); ALT/SGPT 33 U/L (7-56); AST/SGOT 24 U/L (17-59); BLOOD UREA NITROGEN 16 mg/dL (7-21); CALCIUM 9.4 mg/dL (8.4-10.5); GFR NON-AFRICAN AMERICAN > 60; LIPASE 76 U/L (23-300)
[2018-01-20 13:05] LABS: TROPONIN I < 0.01 ng/mL
[2018-01-20] MEDS ORDERED: Atrop/Hyosc/Scopal/PB Elixir (120 ml) PO STA (13:09)
[2018-01-20] MEDS ORDERED: Alum-Mag Hydrox-Simethicone Susp (30 mL) PO STA (13:09)
[2018-01-20] MEDS ORDERED: Iohexol 350 MG/100 ML VIAL ONE (13:24)
--- NOTE | 2018-01-20 14:41 | CT ---
Date of service: 01/20/2018 PROCEDURE: CT Abdomen and Pelvis with contrast HISTORY: diffuse abdominal pain COMPARISON: Noncontrast CT of the abdomen and pelvis performed 09/20/17 TECHNIQUE: Contrast dose: 100 mL Omnipaque 350 Radiation dose: Total exam DLP = 908.43 mGy-cm. This CT exam was performed using one or more of the following dose reduction techniques: Automated exposure control, adjustment of the mA and/or kV according to patient size, and/or use of iterative reconstruction technique. FINDINGS: LOWER THORAX: Bibasilar atelectasis. No visible pleural effusion or pneumothorax. Mild to moderate hiatal hernia and gastroesophageal reflux. LIVER: Unremarkable. GALLBLADDER AND BILE DUCTS: Unremarkable. PANCREAS: Unremarkable. SPLEEN: Unremarkable. ADRENALS: Unremarkable. KIDNEYS AND URETERS: The kidneys enhance symmetrically. Lobulated bilateral renal contours. No hydronephrosis or obstructing calculus identified. Bilateral renal cysts and too small to characterize renal hypodensities statistically likely cysts. VASCULATURE: No aortic aneurysm. No atherosclerotic calcification or mural plaque present. BOWEL: Stomach is nondistended. Lack of oral contrast limits evaluation for bowel pathology. Dilated small bowel loops consistent with small bowel obstruction with transition point appearing in the left abdominal jejunal loops. APPENDIX: The appendix appears within normal limits of caliber. No secondary signs of acute appendicitis. PERITONEUM: No significant free fluid. No definite free air. LYMPH NODES: No bulky adenopathy identified. BLADDER: Unremarkable. REPRODUCTIVE: The prostate gland measures approximately 3.6 x 4.8 cm. BONES: Degenerative changes. OTHER FINDINGS: None. IMPRESSION: Small-bowel obstruction as above. Enlarged prostate gland. Recommend correlation with PSA. Additional incidental findings as above.
[2018-01-20] MEDS ORDERED: Morphine 4 mg/ml ISec IVP STA (14:47)
[2018-01-20 15:59] LABS: URINE BILIRUBIN NEGATIVE (NEGATIVE); URINE BLOOD NEGATIVE (NEGATIVE); URINE GLUCOSE (UA) NEGATIVE (NEGATIVE); URINE LEUKOCYTE ESTERASE NEGATIVE Leu/uL (NEGATIVE); URINE PROTEIN NEGATIVE mg/dL (<30 mg/dL); URINE UROBILINOGEN 0.2 E.U./dL (<1 E.U./dL)
[2018-01-20 16:00] LABS: URINE APPEARANCE CLEAR (CLEAR); URINE COLOR LIGHT YELLOW (YELLOW)
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
[2018-01-20] MEDS ORDERED: Lactated Ringer's 1,000 ML IV ONE (17:30)
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
[2018-01-20] MEDS ORDERED: Lactated Ringer's 1,000 ML IV SCH ×2 (17:45→18:45)
--- NOTE | 2018-01-20 17:47 | RAD ---
HISTORY: s/p NGT placement COMPARISON: Chest x-ray performed 01/20/18 at 1217 hr TECHNIQUE: Chest, one view. FINDINGS: Nasogastric tube extends to the expected location of the stomach with side hole likely at the GE junction; recommend advancement approximately 6 cm. LUNGS: No focal consolidation. Please note that chest x-ray has limited sensitivity for the detection of pulmonary masses. PLEURA: No significant pleural effusion identified. No definite pneumothorax . CARDIOVASCULAR: Heart size appears within normal limits. No significant atherosclerotic calcification present. OSSEOUS STRUCTURES: Degenerative changes. VISUALIZED UPPER ABDOMEN: Unremarkable. OTHER FINDINGS: None. IMPRESSION: Nasogastric tube extends to the expected location of the stomach with sidehole likely at the GE junction; recommend advancement approximately 6 cm. Findings discussed with Dr. Griffith on 01/20/18 at 5:40 p.m.
[2018-01-20] MEDS: Lactated Ringer's 1,000 ML IV SCH (19:04)
[2018-01-21] MEDS: Lactated Ringer's 1,000 ML IV SCH ×2 (04:17→10:27)
[2018-01-21 07:24] LABS: BASO # 0.05 K/mm3 (0.0-2.0); BASO % 0.6 % (0.0-3.0); EOS # 0.9 (0.0-0.7); EOS % 9.7 % (1.5-5.0); GRAN # 5.55 (1.4-6.5); GRAN % 62.7 % (50.0-68.0); LYMPH # 1.8 (1.2-3.4); LYMPH % 20.2 % (22.0-35.0); MEAN CELL VOLUME 89.9 fl (80.0-105.0); MEAN CORPUSCULAR HEMOGLOBIN 30.5 pg (25.0-35.0); MEAN CORPUSCULAR HGB CONC 33.9 g/dl (31.0-37.0); MEAN PLATELET VOLUME 9.9 fl (7.0-11.0); MONO # 0.6 (0.1-0.6); MONO % 6.8 % (1.0-6.0); RBC 4.17 10^6/uL (3.5-6.1); RED CELL DISTRIBUTION WIDTH 13.8 % (11.5-14.5); WHITE BLOOD COUNT 8.9 10^3/uL (4.5-11.0)
[2018-01-21 07:25] LABS: HEMOGLOBIN 12.7 g/dL (14.0-18.0)
[2018-01-21 07:39] LABS: BLOOD UREA NITROGEN 16 mg/dL (7-21); GFR NON-AFRICAN AMERICAN > 60
--- NOTE | 2018-01-21 07:40 | CP.PCM.PN ---
Subjective - Date & Time of Evaluation Date of Evaluation: 01/21/18 Time of Evaluation: 07:36 - Subjective Subjective: General Surgery Progress Note for Dr. Schaefer 63M seen and evaluated at bedside this morning. No acute events overnight. No complaints this morning. Patient states abdominal pain has improved since yesterday. Patient is still belching but also passing flatus. Denies f/c, n/v/d, SOB, CP, or urinary symptoms. Objective - Vital Signs/Intake and Output Vital Signs (last 24 hours): Temp Pulse Resp BP Pulse Ox 97.8 F 74 20 125/76 96 01/21/18 06:00 01/21/18 06:00 01/21/18 06:00 01/21/18 06:00 01/21/18 06:00 Intake and Output: 01/21/18 01/21/18 06:59 18:59 Output Total 650 Balance -650 - Medications Medications: Current Medications Lactated Ringer's (Lactated Ringer's) 1,000 mls @ 125 mls/hr IV .Q8H [facility] Last Admin: 01/21/18 04:17 Dose: 125 mls/hr Ketorolac Tromethamine (Toradol) 15 mg IVP Q6H PRN PRN Reason: Pain, moderate (4-7) Ketorolac Tromethamine (Toradol) 30 mg IVP Q12H PRN PRN Reason: Pain, severe (8-10) Lorazepam (Ativan) 0.5 mg IVP Q6H PRN; Protocol PRN Reason: Anxiety Ondansetron HCl (Zofran Inj) 4 mg IVP Q6H PRN PRN Reason: Nausea/Vomiting Pantoprazole Sodium (Protonix Inj) 40 mg IVP DAILY DANIEL - Labs Labs: 01/21/18 07:00 01/20/18 12:30 PT 11.5 SECONDS (9.4-12.5) 01/20/18 12:30 INR 1.00 01/20/18 12:30 APTT 24.5 Seconds (25.1-36.5) L 01/20/18 12:30 - Constitutional Appears: Well, Non-toxic, No Acute Distress - Head Exam Head Exam: ATRAUMATIC, NORMAL INSPECTION, NORMOCEPHALIC - ENT Exam ENT Exam: Mucous Membranes Dry - Respiratory Exam Respiratory Exam: NORMAL BREATHING PATTERN - GI/Abdominal Exam GI & Abdominal Exam: Distended, Soft, Normal Bowel Sounds. absent: Guarding, Tenderness, Rebound - Neurological Exam Neurological Exam: Alert, Awake - Psychiatric Exam Psychiatric exam: Normal Affect, Normal Mood - Skin Skin Exam: Dry, Intact, Normal Color, Warm Assessment and Plan - Assessment and Plan (Free Text) Assessment: 63M w/ small bowel obstruction Plan: NGT clamped today - will reassess in 4 hours NPO w/ ice chips Continue IVF Continue analgesics and antiemetics Continue to monitor bowel function Further recommendation per Dr. Silvano Iverson PGY1
--- NOTE | 2018-01-21 09:19 | CARD ---
APPROVED REPORT Date of service: 01/20/2018 EKG Measurement Heart [id number] <Conclusion> Normal sinus rhythm Moderate voltage criteria for LVH LAD No change
[2018-01-21] MEDS ORDERED: Lubricant Eye Drops UD OU PRN (10:19)
--- NOTE | 2018-01-21 15:34 | CP.PCM.PN ---
<Adrianna Le - Last Filed: 01/21/18 15:52> Subjective - Date & Time of Evaluation Date of Evaluation: 01/21/18 Time of Evaluation: 15:28 - Subjective Subjective: PGY1 Medicine Progress Note for Dr. Leiva Patient was seen and evaluated at bedside this morning. No acute events overnight. Patient with NGT in tact. Patient complains of dry eyes, but otherwise denies any nausea, and/or abdominal pain. Patient endorses flatus, but denies bowel movement. 12 Point ROS was otherwise unremarkable. Objective - Vital Signs/Intake and Output Vital Signs (last 24 hours): Temp Pulse Resp BP Pulse Ox 97.8 F 74 20 125/76 96 01/21/18 06:00 01/21/18 06:00 01/21/18 06:00 01/21/18 06:00 01/21/18 06:00 Intake and Output: 01/21/18 01/21/18 06:59 18:59 Output Total 650 Balance -650 - Medications Medications: Current Medications Artificial Tears (Refresh Opth Soln) 0.3 ml OU BID PRN PRN Reason: Dry eyes Aspirin (Aspirin Chewable) 81 mg PO DAILY [facility] Atorvastatin Calcium (Lipitor) 40 mg PO DIN [facility] Ferrous Sulfate (Feosol) 324 mg PO DAILY [facility] Folic Acid (Folic Acid) 1 mg PO DAILY [facility] Hydrochlorothiazide (Microzide) 12.5 mg PO DAILY [facility] Lactated Ringer's (Lactated Ringer's) 1,000 mls @ 125 mls/hr IV .Q8H [facility] Last Admin: 01/21/18 10:27 Dose: 125 mls/hr Ketorolac Tromethamine (Toradol) 15 mg IVP Q6H PRN PRN Reason: Pain, moderate (4-7) Ketorolac Tromethamine (Toradol) 30 mg IVP Q12H PRN PRN Reason: Pain, severe (8-10) Lorazepam (Ativan) 0.5 mg IVP Q6H PRN; Protocol PRN Reason: Anxiety Multivitamins (Thera Tab) 1 tab PO DAILY [facility] Non-Formulary Medication (Ketotifen Fumarate [Zaditor]) 5 ml OP BID [facility] Ondansetron HCl (Zofran Inj) 4 mg IVP Q6H PRN PRN Reason: Nausea/Vomiting Pantoprazole Sodium (Protonix Inj) 40 mg IVP DAILY [facility] Last Admin: 01/21/18 10:25 Dose: 40 mg Tamsulosin HCl (Flomax) 0.4 mg PO DAILY [facility] Thiamine HCl (Vitamin B1 Tab) 50 mg PO DAILY [facility] - Labs Labs: 01/21/18 07:00 01/21/18 07:00 PT 11.5 SECONDS (9.4-12.5) 01/20/18 12:30 INR 1.00 01/20/18 12:30 APTT 24.5 Seconds (25.1-36.5) L 01/20/18 12:30 - Additional Findings Additional findings: - Head Exam Head Exam: ATRAUMATIC, NORMAL INSPECTION, NORMOCEPHALIC - Eye Exam Eye Exam: Normal appearance - ENT Exam ENT Exam: Mucous Membranes Moist Additional comments: NG tube placement - Neck Exam Neck exam: Positive for: Normal Inspection - Respiratory Exam Respiratory Exam: Clear to Auscultation Bilateral, NORMAL BREATHING PATTERN. absent: Rhonchi, Wheezes - Cardiovascular Exam Cardiovascular Exam: REGULAR RHYTHM, +S1, +S2 - GI/Abdominal Exam GI & Abdominal Exam: Hyperactive Bowel Sounds, Soft. absent: Distended, Guarding Additional comments: vertical Ex lap scar - Extremities Exam Extremities exam: Positive for: normal inspection - Back Exam Back exam: NORMAL INSPECTION - Neurological Exam Neurological exam: Alert, CN II-XII Intact, Oriented x3 - Psychiatric Exam Psychiatric exam: Normal Affect, Normal Mood - Skin Skin Exam: Normal Color, Warm Assessment and Plan - Assessment and Plan (Free Text) Assessment: Mr. Cage is a 63-year-old Male with a history of BPH, gout, and alcohol abuse presenting with complaints of abdominal pain which began on 01/19/18 at 6:30 p.m. after consuming a large meal. Patient was found to have a small bowel obstruction at jejunal transition on ABD/Pelvic CT with PO contrast. Patient subsequently admitted for evaluation and is currently being treated with conservative management. Abdominal pain secondary to small bowel obstruction - Continue Lactated ringers@125 - Patient tolerated liquid diet, transitioned to regular diet - NG tube removed; per surgery - Toradol for pain control - Surgery on consult - Strict I&O - Continue Zofran 4mg IVP Q6H PRN for nausea - Monitor patient's vitals and left shift; lactic acid ordered- will consider abx if elevated or persistent BPH - Restart home meds: - Tamsulosin PO Dry eyes likely due to keratoconjunctivitis sicca - Start Refresh Tears eye drops daily History of Chest Pain - worked up on previous visit - see discharge summary from 09/22/17 - Restart Home Meds: HCTZ 12.5mg PO daily Lipitor 40mg PO DIN [facility]SA PO daily History of Gout - No intervention needed at this time History of alcohol abuse disorder - Restart thiamine 50mg PO daily - Restart multivitamine - Restart Folic Acid 1mg PO daily - Continue Ativan 0.5mv IVP Q6H PRN for symptoms of withdrawal GI/DVT ppx: Protonix/SCDs Patient seen and case discussed in detail with Attending Physician Dr. Abbie Le PGY1 <Sarita Leiva - Last Filed: 01/21/18 16:57> Objective - Vital Signs/Intake and Output Vital Signs (last 24 hours): Temp Pulse Resp BP Pulse Ox 97.8 F 74 20 125/76 96 01/21/18 06:00 01/21/18 06:00 01/21/18 06:00 01/21/18 06:00 01/21/18 06:00 Intake and Output: 01/21/18 01/21/18 06:59 18:59 Output Total 650 Balance -650 - Medications Medications: Current Medications Artificial Tears (Refresh Opth Soln) 0.3 ml OU BID PRN PRN Reason: Dry eyes Aspirin (Aspirin Chewable) 81 mg PO DAILY [facility] Atorvastatin Calcium (Lipitor) 40 mg PO DIN [facility] Ferrous Sulfate (Feosol) 324 mg PO DAILY [facility] Folic Acid (Folic Acid) 1 mg PO DAILY [facility] Hydrochlorothiazide (Microzide) 12.5 mg PO DAILY [facility] Lactated Ringer's (Lactated Ringer's) 1,000 mls @ 125 mls/hr IV .Q8H [facility] Last Admin: 01/21/18 10:27 Dose: 125 mls/hr Ketorolac Tromethamine (Toradol) 15 mg IVP Q6H PRN PRN Reason: Pain, moderate (4-7) Ketorolac Tromethamine (Toradol) 30 mg IVP Q12H PRN PRN Reason: Pain, severe (8-10) Lorazepam (Ativan) 0.5 mg IVP Q6H PRN; Protocol PRN Reason: Anxiety Multivitamins (Thera Tab) 1 tab PO DAILY [facility] Non-Formulary Medication (Ketotifen Fumarate [Zaditor]) 5 ml OP BID [facility] Ondansetron HCl (Zofran Inj) 4 mg IVP Q6H PRN PRN Reason: Nausea/Vomiting Pantoprazole Sodium (Protonix Inj) 40 mg IVP DAILY [facility] Last Admin: 01/21/18 10:25 Dose: 40 mg Tamsulosin HCl (Flomax) 0.4 mg PO DAILY [facility] Thiamine HCl (Vitamin B1 Tab) 50 mg PO DAILY [facility] - Labs Labs: 01/21/18 07:00 01/21/18 07:00 PT 11.5 SECONDS (9.4-12.5) 01/20/18 12:30 INR 1.00 01/20/18 12:30 APTT 24.5 Seconds (25.1-36.5) L 01/20/18 12:30 Attending/Attestation - Attestation I have personally seen and examined this patient.: Yes I have fully participated in the care of the patient.: Yes I have reviewed all pertinent clinical information, including history, physical exam and plan: Yes Notes (Text): 01/21/18 16:53 Attending note; Patient seen and examined with resident. Patient is alert and awake. NG tube in place. Patient is a 63 year old male with a history of BPH, gout, and alcohol abuse presenting with complaints of abdominal pain. CT abdomen and pelvis showed bowel obstruction. Patient was evaluated by surgery. NG tube placed. currently denies any abdominal pain. passing gas. Abdomen is not distended. Plan to clamp NG tube and monitor. Possible NG tube removal today. Continue IV fluids. Upon discharge patient will follow up with [facility] clinic.
[2018-01-21] MEDS ORDERED: KETOTIFEN FUMARATE OP SCH ×2 (18:00)
[2018-01-22] MEDS: Lactated Ringer's 1,000 ML IV SCH ×2 (06:09→11:43)
[2018-01-22 07:22] LABS: BASO # 0.02 K/mm3 (0.0-2.0); BASO % 0.3 % (0.0-3.0); EOS # 1.3 (0.0-0.7); EOS % 17.4 % (1.5-5.0); GRAN # 4.01 (1.4-6.5); GRAN % 52.2 % (50.0-68.0); HEMOGLOBIN 11.9 g/dL (14.0-18.0); LYMPH # 1.9 (1.2-3.4); MEAN CELL VOLUME 89.8 fl (80.0-105.0); MEAN CORPUSCULAR HEMOGLOBIN 30.3 pg (25.0-35.0); MEAN CORPUSCULAR HGB CONC 33.7 g/dl (31.0-37.0); MEAN PLATELET VOLUME 9.7 fl (7.0-11.0); MONO # 0.4 (0.1-0.6); MONO % 5.1 % (1.0-6.0); RBC 3.93 10^6/uL (3.5-6.1); RED CELL DISTRIBUTION WIDTH 13.6 % (11.5-14.5); WHITE BLOOD COUNT 7.7 10^3/uL (4.5-11.0)
--- NOTE | 2018-01-22 07:26 | CP.PCM.PN ---
Subjective - Date & Time of Evaluation Date of Evaluation: 01/22/18 Time of Evaluation: 07:26 - Subjective Subjective: Surgery Progress note for Dr. Schaefer Patient seen and examined at bedside this morning. Patient has not had BM in the hospital yet but thinks it is because of his dietary restriction. Patient denies nausea, vomiting, abdominal pain, chest pain, SOB, fevers, chills. He is looking to the advancement of his diet since he is hungry. Objective - Vital Signs/Intake and Output Vital Signs (last 24 hours): Temp Pulse Resp BP Pulse Ox 100 F H 73 18 126/72 95 01/21/18 23:21 01/21/18 23:21 01/21/18 23:21 01/21/18 23:21 01/21/18 23:21 Intake and Output: 01/22/18 01/22/18 06:59 18:59 Intake Total 2740 Output Total 1675 Balance 1065 - Medications Medications: Current Medications Artificial Tears (Refresh Opth Soln) 0.3 ml OU BID PRN PRN Reason: Dry eyes Atorvastatin Calcium (Lipitor) 40 mg PO DIN [facility] Last Admin: 01/21/18 16:56 Dose: 40 mg Ferrous Sulfate (Feosol) 324 mg PO DAILY [facility] Folic Acid (Folic Acid) 1 mg PO DAILY [facility] Hydrochlorothiazide (Microzide) 12.5 mg PO DAILY [facility] Lactated Ringer's (Lactated Ringer's) 1,000 mls @ 125 mls/hr IV .Q8H [facility] Last Admin: 01/22/18 06:09 Dose: 125 mls/hr Ketorolac Tromethamine (Toradol) 15 mg IVP Q6H PRN PRN Reason: Pain, moderate (4-7) Ketorolac Tromethamine (Toradol) 30 mg IVP Q12H PRN PRN Reason: Pain, severe (8-10) Lorazepam (Ativan) 0.5 mg IVP Q6H PRN; Protocol PRN Reason: Anxiety Multivitamins (Thera Tab) 1 tab PO DAILY [facility] Non-Formulary Medication (Ketotifen Fumarate [Zaditor]) 5 ml OP BID [facility] Ondansetron HCl (Zofran Inj) 4 mg IVP Q6H PRN PRN Reason: Nausea/Vomiting Pantoprazole Sodium (Protonix Inj) 40 mg IVP DAILY [facility] Last Admin: 01/21/18 10:25 Dose: 40 mg Tamsulosin HCl (Flomax) 0.4 mg PO DAILY [facility] Thiamine HCl (Vitamin B1 Tab) 50 mg PO DAILY [facility] - Labs Labs: 01/21/18 07:00 01/21/18 07:00 PT 11.5 SECONDS (9.4-12.5) 01/20/18 12:30 INR 1.00 01/20/18 12:30 APTT 24.5 Seconds (25.1-36.5) L 01/20/18 12:30 - Constitutional Appears: Well, Non-toxic - Head Exam Head Exam: ATRAUMATIC, NORMAL INSPECTION, NORMOCEPHALIC - Eye Exam Eye Exam: EOMI, Normal appearance - Neck Exam Neck Exam: Normal Inspection - Respiratory Exam Respiratory Exam: Clear to Ausculation Bilateral - Cardiovascular Exam Cardiovascular Exam: REGULAR RHYTHM - GI/Abdominal Exam GI & Abdominal Exam: Soft, Normal Bowel Sounds. absent: Guarding, Rigid, Tenderness Additional comments: healed approx 4 inch midline vertical abdominal scar - Neurological Exam Neurological Exam: Alert, Awake, Oriented x3 - Psychiatric Exam Psychiatric exam: Normal Affect, Normal Mood - Skin Skin Exam: Dry, Intact, Normal Color, Warm Assessment and Plan - Assessment and Plan (Free Text) Assessment: 63 year old male with SBO -NGT clamped and removed successfully 01/21, yesterday. Patient has been tolerating liquid diet without nausea/vomiting. -Order for advancement to regular food for lunch today, 01/22 -continue to monitor bowel function -If patient able to tolerate regular food, we will sign off today Stormy Agee DO PGY1
[2018-01-22 07:36] LABS: ALB/GLOB RATIO 1.1 (1.1-1.8); ALBUMIN 3.1 g/dL (3.0-4.8); ALT/SGPT 30 U/L (7-56); AST/SGOT 22 U/L (17-59); BLOOD UREA NITROGEN 14 mg/dL (7-21); CALCIUM 8.1 mg/dL (8.4-10.5); GFR NON-AFRICAN AMERICAN > 60
[2018-01-22 08:33] VITALS: BP 120/67; PULSE 69; RESP 16; TEMP 98.1; O2SAT 96
[2018-01-22] MEDS ORDERED: Multivitamin Therapeutic Tab PO SCH (10:00)
[2018-01-22] MEDS ORDERED: MULTIVITAMIN PO SCH (10:00)
[2018-01-22] MEDS ORDERED: FERROUS SULFATE 325 MG PO SCH (10:00)
[2018-01-22] MEDS ORDERED: Pneumococcal 23-Valent Vaccine IM ONE (13:09)
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
[2018-01-23] MEDS ORDERED: Pantoprazole 40 mg EC Tab PO SCH (07:30)
== END 2018-01-22 15:14 | disposition home or self-care (01) | DRG 247 ==
LOC: ED 11:42 → ERH 16:07 → 5RSO 18:03
PROVIDERS: ADMIT Internal Medicine; ATTEND Internal Medicine
PROC: 3E0234Z Introduction of Serum, Toxoid and Vaccine into Muscle, Percutaneous Approach (ICD-10-PCS; principal; 2018-01-22)
DX: K56.50 Intestinal adhesions [bands], unspecified as to partial versus complete obstruction (principal); I10 Essential (primary) hypertension; H16.209 Unspecified keratoconjunctivitis, unspecified eye; H04.123 Dry eye syndrome of bilateral lacrimal glands; J98.11 Atelectasis; M10.9 Gout, unspecified; N40.0 Benign prostatic hyperplasia without lower urinary tract symptoms; F10.10 Alcohol abuse, uncomplicated; R40.2412 Glasgow coma scale score 13-15, at arrival to emergency department; Z23 Encounter for immunization